=== PATIENT | male | born 1955 | race Two or more races ===

== ENCOUNTER 2020-01-21 13:42 | Emergency (ER) | payer OTHER ==
[~2020-01-21] VITALS: Ht 167.6 cm; Wt 77.1 kg
[~2020-01-21 13:42] MED LIST: NEOSPORIN + P28.3 GM TP
== END 2020-01-21 18:47 | disposition home or self-care (01) ==
LOC: ER 13:42
DX: S61.222A Laceration with foreign body of right middle finger without damage to nail, initial encounter (principal); S61.220A Laceration with foreign body of right index finger without damage to nail, initial encounter; W26.0XXA Contact with knife, initial encounter; Y93.89 Activity, other specified; Y92.69 Other specified industrial and construction area as the place of occurrence of the external cause; Y99.8 Other external cause status